=== PATIENT | male | born 1980 | race African-American/Black ===

== ENCOUNTER 2018-01-03 05:14 | Emergency (ER) | payer MEDICAID ==
[~2018-01-03] VITALS: Ht 182.9 cm; Wt 152.0 kg
[~2018-01-03 05:14] MED LIST: ALLO300T2 PO; AMLO10TA4 PO; ATOR40TA70 PO; CHOL20004 PO; GABA-531 PO; GLIP10TA10 PO; LANTUSUD SUBCUT; METF-416 PO; RIVA20TA PO; TRIA1TAB94 PO
[2018-01-03] MEDS ORDERED: KETOROLAC 60MG/2ML VIAL IM ONE (05:45)
[2018-01-03 06:26] VITALS: BP 136/94
== END 2018-01-03 06:47 | disposition home or self-care (01) ==
LOC: ER 05:14
DX: S43.401A Unspecified sprain of right shoulder joint, initial encounter (principal); W19.XXXA Unspecified fall, initial encounter; Y93.89 Activity, other specified; Y92.89 Other specified places as the place of occurrence of the external cause; Y99.8 Other external cause status
CPT/HCPCS: 73030; 96372; 99284; J1885

== ENCOUNTER 2018-09-27 09:56 | Emergency (ER) | payer BC, MEDICAID ==
[~2018-09-27] VITALS: Ht 182.9 cm; Wt 157.0 kg
[2018-09-27] MEDS ORDERED: BACITRACIN ZINC OINT UDPKT TOP ONE (12:30)
[2018-09-27] MEDS ORDERED: LIDOCAINE HCL/PF 1% 10 MG/ML 5ML VIAL IJ ONE (12:30)
[2018-09-27] MEDS ORDERED: HYDROCODONE/ACETAMINOPHEN 5/325MG TABLET PO ONE (13:45)
[2018-09-27 14:27] VITALS: BP 144/97
== END 2018-09-27 14:30 | disposition home or self-care (01) ==
LOC: ER 09:56
DX: L03.011 Cellulitis of right finger (principal); E11.9 Type 2 diabetes mellitus without complications; I10 Essential (primary) hypertension; M10.9 Gout, unspecified; Z86.711 Personal history of pulmonary embolism; Z79.899 Other long term (current) drug therapy
CPT/HCPCS: 10060; 99283; J3490

== ENCOUNTER 2020-06-03 16:29 | Inpatient (IN) | payer OTHER, MEDICAID ==
[~2020-06-03] VITALS: Ht 182.9 cm; Wt 158.3 kg
[~2020-06-03 16:29] MED LIST changes: -GABA-531 PO; +GABA-532 PO
[2020-06-03] MEDS ORDERED: ACETAMINOPHEN 325MG TABLET PO STA (17:02)
[2020-06-03] MEDS ORDERED: DEXAMETHASONE 4MG/ML 1ML VIAL IV ONE (17:15)
[2020-06-03] MEDS ORDERED: VANCOMYCIN 1 G PREMIX 200 ML IV ONE (17:15)
[2020-06-03] MEDS ORDERED: PIPERACILLIN/TAZ 3.375G PREMIX 50 ML IV ONE (17:15)
[2020-06-03 17:19] LABS: CLARITY URINE CLEAR (CLEAR); COLOR URINE YELLOW (YELLOW); KETONES URINE NEGATIVE (NEGATIVE); LEUKOCYTE ESTERASE URINE NEGATIVE (NEGATIVE); NITRITE URINE NEGATIVE (NEGATIVE); OCCULT BLOOD URINE NEGATIVE (NEGATIVE); PH URINE 5.5 (4.5-8.0); PROTEIN URINE NEGATIVE (NEGATIVE); SPECIFIC GRAVITY URINE 1.015 (1.005-1.030); UROBILINOGEN URINE 0.2 E.U./dL (0.2-1.0)
[2020-06-03] MEDS ORDERED: PIPERACILLIN/TAZOBACTAM 3.375 G in DEXT 5% WATER 100 ML IV SCH (17:30)
[2020-06-03 17:42] LABS: BASOPHILS % 0.6 % (0.0-2.0); EOSINOPHILS % 1.2 % (0.0-5.0); HEMATOCRIT. 45.2 % (42.0-52.0); HEMOGLOBIN. 14.8 g/dL (14.0-18.0); LYMPHOCYTES % 27.6 % (20.0-50.0); MEAN CORPUSCULAR HEMOGLOBIN 27.8 pg (28.0-32.0); MEAN CORPUSCULAR VOLUME 84.6 fL (80.0-94.0); MEAN PLATELET VOLUME 9.7 fl (7.4-10.4); MONOCYTES % 8.3 % (2.0-8.0); NEUTROPHILS % 62.3 % (40.0-76.0); PLATELET 191 x1000/uL (130-400); RED BLOOD CELL COUNT 5.34 mill/uL (4.7-6.1); RED CELL DISTRIBUTION WIDTH 13.9 % (11.6-14.6)
[2020-06-03 17:48] LABS: CHLORIDE 109 mEq/L (98-107)
[2020-06-03 17:51] LABS: PROTHROMBIN TIME 10.5 sec (9.6-11.0)
[2020-06-03] MEDS ORDERED: ALBUTEROL (0.083%) 2.5MG/3ML NEB HHN STA (18:16)
[2020-06-03] MEDS ORDERED: IPRATROPIUM BROMIDE (0.02%) 0.5MG/2.5ML NEB HHN STA (18:16)
[2020-06-03] MEDS ORDERED: ENOXAPARIN 150MG/ML SYR SUBCUT NR (18:45)
[2020-06-04 10:00] VITALS: BP 133/92
[2020-06-04 10:07] VITALS: BP 154/92
[2020-06-04] MEDS ORDERED: INSNOV SUBCUT (10:57)
[2020-06-04] MEDS ORDERED: AMLO-79 MT (10:57)
[2020-06-04] MEDS ORDERED: LORAZEPAM 0.5MG TABLET PO PRN (11:00)
[2020-06-04] MEDS ORDERED: DOCUSATE SODIUM 100MG CAPSULE PO PRN (11:00)
[2020-06-04] MEDS ORDERED: MAGNESIUM/ALUMINUM HYDROXIDE/SIMETHICONE 30ML UDC PO PRN (11:00)
[2020-06-04] MEDS ORDERED: ACETAMINOPHEN 650MG SUPP PR PRN (11:00)
[2020-06-04] MEDS ORDERED: ONDANSETRON HCL 4MG/2ML INJ IV PRN (11:00)
[2020-06-04] MEDS ORDERED: CEFTRIAXONE 1 G PREMIX 50 ML IV SCH (11:00)
[2020-06-04] MEDS ORDERED: DIPHENHYDRAMINE 50MG/ML VIAL IV PRN (11:00)
[2020-06-04] MEDS ORDERED: DEXTROSE 50% WATER 50ML SYRINGE IV PRN (11:00)
[2020-06-04] MEDS ORDERED: NA PHOS,M-B/NA PHOS,DI-BA ENEMA 118ML PR PRN (11:00)
[2020-06-04] MEDS ORDERED: HYDROCODONE/ACETAMINOPHEN 5/325MG TABLET PO PRN (11:00)
[2020-06-04] MEDS ORDERED: CLONIDINE 0.1MG TABLET PO PRN (11:00)
[2020-06-04] MEDS ORDERED: ENOXAPARIN 40MG/0.4ML SYR SUBCUT SCH (11:27)
[2020-06-04] MEDS: BLOOD SUGAR DIAGNOSTIC STRIP TEST SCH ×3 (12:18→21:03)
[2020-06-04] MEDS: DEXAMETHASONE 10 MG/ML VIAL IV SCH (12:44)
[2020-06-04] MEDS: CEFTRIAXONE 1,000 MG in DEXTROSE 5% WATER 50 ML IV SCH (12:46)
[2020-06-04] MEDS: INSULIN LISPRO 100 UNITS/ML SUBCUT SCH ×3 (12:46→21:02)
[2020-06-04] MEDS: AZITHROMYCIN 500 MG in DEXT 5% WATER 250 ML IV SCH (12:47)
[2020-06-04] MEDS: GUAIFENESIN 200MG/10ML SUGAR FREE UDC PO PRN ×2 (13:20→17:10)
[2020-06-04] MEDS: ALBUTEROL 6.7GM HFA INHALER ORI SCH ×2 (15:28→21:23)
[2020-06-04 16:00] VITALS: BP 146/99
[2020-06-04 16:46] LABS: BG BASE EXCESS -0.6 mmol/L (-2.0-2.0); BG CARBOXYHEMOGLOBIN 0.6 % (0.5-1.5); BG DEOXYHEMOGLOBIN 5.8 % (0.0-5.0); BG HCO3 ACT 23.2 mmol/L (22.0-26.0); BG METHEMOGLOBIN 0.1 % (0.0-1.5); BG OXYGEN SATURATION 94.2 % (92.0-98.5); BG OXYHEMOGLOBIN 93.5 % (94.0-97.0); BG PH 7.427 (7.350-7.450); BG PO2 68.5 mmHg (75.0-100.0); BG SAMPLE SITE RIGHT RADIAL; BG TOTAL HEMOGLOBIN 15.6 g/dL (12.0-18.0); BG VENT MODE NASAL CANNULA
[2020-06-04] MEDS: FUROSEMIDE 40MG/4ML VIAL IVP SCH (17:10)
[2020-06-04 18:47] LABS: CREATINE KINASE MB FRACTION 3.2 ng/mL (0.5-3.6)
[2020-06-04 18:59] LABS: *AMPHETAMINES SCREEN URINE NEGATIVE (NEGATIVE); *BARBITURATES SCREEN URINE NEGATIVE (NEGATIVE); *BENZODIAZEPINES SCREEN URINE NEGATIVE (NEGATIVE); *COCAINE SCREEN URINE NEGATIVE (NEGATIVE)
[2020-06-04 19:00] LABS: CANNABINOID URINE SCREEN NEGATIVE (NEGATIVE); METHADONE URINE SCREEN NEGATIVE (NEGATIVE); OPIATES URINE SCREEN NEGATIVE (NEGATIVE); PHENCYCLIDINE URINE SCREEN NEGATIVE (NEGATIVE)
[2020-06-04 20:00] VITALS: BP 156/101
[2020-06-04] MEDS: ATORVASTATIN CALCIUM 40MG TABLET PO SCH (21:02)
[2020-06-04] MEDS: GLIPIZIDE 10MG TABLET PO SCH (21:02)
[2020-06-04] MEDS: CARVEDILOL 3.125 MG TABLET PO SCH (21:02)
[2020-06-04] MEDS: FAMOTIDINE 20MG TABLET PO SCH (21:02)
[2020-06-04] MEDS: GABAPENTIN 300MG CAPSULE PO SCH (21:05)
[2020-06-05 00:30] VITALS: BP 137/104
[2020-06-05 00:48] LABS: CREATINE KINASE MB FRACTION 2.9 ng/mL (0.5-3.6)
[2020-06-05] MEDS: ALBUTEROL 6.7GM HFA INHALER ORI SCH ×2 (01:00→08:06)
[2020-06-05 04:00] VITALS: BP 123/79
[2020-06-05 06:01] LABS: BASOPHILS % 0.1 % (0.0-2.0); HEMATOCRIT. 43.5 % (42.0-52.0); HEMOGLOBIN. 14.2 g/dL (14.0-18.0); LYMPHOCYTES % 12.7 % (20.0-50.0); MEAN CORPUSCULAR HEMOGLOBIN 27.7 pg (28.0-32.0); MEAN CORPUSCULAR VOLUME 84.8 fL (80.0-94.0); MEAN PLATELET VOLUME 10.3 fl (7.4-10.4); MONOCYTES % 6.5 % (2.0-8.0); NEUTROPHILS % 80.7 % (40.0-76.0); PLATELET 203 x1000/uL (130-400); RED BLOOD CELL COUNT 5.13 mill/uL (4.7-6.1)
[2020-06-05] MEDS: BLOOD SUGAR DIAGNOSTIC STRIP TEST SCH ×4 (06:13→21:00)
[2020-06-05 06:24] LABS: CHLORIDE 106 mEq/L (98-107)
[2020-06-05] MEDS: RIVAROXABAN 20 MG TABLET PO SCH (06:24)
[2020-06-05] MEDS: INSULIN LISPRO 100 UNITS/ML SUBCUT SCH ×5 (06:25→21:36)
[2020-06-05 06:43] LABS: HDL CHOLESTEROL 53 mg/dL (40-59)
[2020-06-05 06:46] LABS: T4 FREE 1.02 ng/dL (0.76-1.46)
[2020-06-05 06:49] LABS: LDL CHOLESTEROL 111 mg/dL (5-100)
[2020-06-05 08:00] VITALS: BP 141/90
[2020-06-05] MEDS: CARVEDILOL 3.125 MG TABLET PO SCH (08:32)
[2020-06-05] MEDS: DEXAMETHASONE 10 MG/ML VIAL IV SCH (08:32)
[2020-06-05] MEDS: ALLOPURINOL 300 MG TABLET PO SCH (08:32)
[2020-06-05] MEDS: FUROSEMIDE 40MG/4ML VIAL IVP SCH ×2 (08:32→17:13)
[2020-06-05] MEDS: ACETAMINOPHEN 325MG TABLET PO PRN ×2 (09:37→18:25)
[2020-06-05] MEDS ORDERED: INSULIN GLARGINE UD 100 UNITS/ML SYR SUBCUT SCH (10:00)
[2020-06-05 11:38] LABS: BG BASE EXCESS 1.9 mmol/L (-2.0-2.0); BG CARBOXYHEMOGLOBIN 0.5 % (0.5-1.5); BG DEOXYHEMOGLOBIN 10.9 % (0.0-5.0); BG FRACTION INSPIRED OXYGEN 21; BG HCO3 ACT 26.1 mmol/L (22.0-26.0); BG METHEMOGLOBIN 0.3 % (0.0-1.5); BG OXYHEMOGLOBIN 88.3 % (94.0-97.0); BG PCO2 39.3 mmHg (35.0-45.0); BG PO2 54.7 mmHg (75.0-100.0); BG SAMPLE SITE RIGHT RADIAL; BG TOTAL HEMOGLOBIN 14.6 g/dL (12.0-18.0); BG VENT MODE ROOM AIR
[2020-06-05] MEDS ORDERED: ALBUTEROL (0.083%) 2.5MG/3ML NEB HHN PRN (11:45)
[2020-06-05 12:00] VITALS: BP 115/73
[2020-06-05] MEDS ORDERED: CARVEDILOL 3.125 MG TABLET PO NR (12:00)
[2020-06-05] MEDS: CEFTRIAXONE 1,000 MG in DEXTROSE 5% WATER 50 ML IV SCH (15:03)
[2020-06-05 16:00] VITALS: BP 126/86
[2020-06-05] MEDS: AZITHROMYCIN 500 MG in DEXT 5% WATER 250 ML IV SCH (17:13)
[2020-06-05 20:00] VITALS: BP 134/97
[2020-06-05] MEDS: ATORVASTATIN CALCIUM 40MG TABLET PO SCH ×2 (21:00→21:34)
[2020-06-05] MEDS: GLIPIZIDE 10MG TABLET PO SCH ×2 (21:00→21:35)
[2020-06-05] MEDS: FAMOTIDINE 20MG TABLET PO SCH ×2 (21:00→21:35)
[2020-06-05] MEDS: GABAPENTIN 300MG CAPSULE PO SCH ×2 (21:00→21:34)
[2020-06-05] MEDS: CARVEDILOL 6.25 MG TABLET PO SCH (21:36)
[2020-06-06] VITALS: BP 129/85
[2020-06-06 04:00] VITALS: BP 109/67
[2020-06-06 06:08] LABS: BASOPHILS % 0.1 % (0.0-2.0); EOSINOPHILS % 0.1 % (0.0-5.0); HEMATOCRIT. 42.2 % (42.0-52.0); HEMOGLOBIN. 13.9 g/dL (14.0-18.0); LYMPHOCYTES % 21.9 % (20.0-50.0); MEAN CORPUSCULAR HEMOGLOBIN 28.1 pg (28.0-32.0); MEAN CORPUSCULAR VOLUME 85.2 fL (80.0-94.0); MONOCYTES % 8.2 % (2.0-8.0); NEUTROPHILS % 69.7 % (40.0-76.0); PLATELET 211 x1000/uL (130-400); RED BLOOD CELL COUNT 4.96 mill/uL (4.7-6.1); RED CELL DISTRIBUTION WIDTH 13.8 % (11.6-14.6)
[2020-06-06 06:30] LABS: CHLORIDE 106 mEq/L (98-107)
[2020-06-06] MEDS: BLOOD SUGAR DIAGNOSTIC STRIP TEST SCH ×4 (06:45→21:00)
[2020-06-06 08:00] VITALS: BP 112/80
[2020-06-06] MEDS: FUROSEMIDE 40MG/4ML VIAL IVP SCH ×2 (08:59→17:35)
[2020-06-06] MEDS: CARVEDILOL 6.25 MG TABLET PO SCH (09:00)
[2020-06-06] MEDS: ALLOPURINOL 300 MG TABLET PO SCH (09:00)
[2020-06-06] MEDS: RIVAROXABAN 20 MG TABLET PO SCH (09:00)
[2020-06-06] MEDS: INSULIN LISPRO 100 UNITS/ML SUBCUT SCH ×3 (09:09→17:35)
[2020-06-06] MEDS: INSULIN GLARGINE UD 100 UNITS/ML SYR SUBCUT SCH (10:22)
[2020-06-06] MEDS: CEFTRIAXONE 1,000 MG in DEXTROSE 5% WATER 50 ML IV SCH (11:56)
[2020-06-06 12:00] VITALS: BP 119/72
[2020-06-06] MEDS: AZITHROMYCIN 500 MG in DEXT 5% WATER 250 ML IV SCH (13:19)
[2020-06-06 16:00] VITALS: BP 128/95
[2020-06-06] MEDS: LISINOPRIL 10MG TABLET PO SCH (18:03)
[2020-06-06 20:42] VITALS: BP 108/73
[2020-06-07] VITALS: BP 166/56
[2020-06-07] MEDS: CARVEDILOL 6.25 MG TABLET PO SCH ×2 (02:09→08:57)
[2020-06-07 04:00] VITALS: BP 108/64
[2020-06-07] MEDS: INSULIN LISPRO 100 UNITS/ML SUBCUT SCH ×2 (07:15→12:15)
[2020-06-07 07:17] LABS: BASOPHILS % 0.2 % (0.0-2.0); EOSINOPHILS % 1.3 % (0.0-5.0); HEMOGLOBIN. 13.9 g/dL (14.0-18.0); LYMPHOCYTES % 40.2 % (20.0-50.0); MEAN CORPUSCULAR HEMOGLOBIN 27.5 pg (28.0-32.0); MEAN CORPUSCULAR VOLUME 84.7 fL (80.0-94.0); MEAN PLATELET VOLUME 9.8 fl (7.4-10.4); NEUTROPHILS % 49.3 % (40.0-76.0); PLATELET 206 x1000/uL (130-400); RED BLOOD CELL COUNT 5.07 mill/uL (4.7-6.1); RED CELL DISTRIBUTION WIDTH 13.8 % (11.6-14.6)
[2020-06-07 07:43] LABS: CHLORIDE 105 mEq/L (98-107)
[2020-06-07 08:00] VITALS: BP 101/58
[2020-06-07] MEDS: ALLOPURINOL 300 MG TABLET PO SCH (08:52)
[2020-06-07] MEDS: INSULIN GLARGINE UD 100 UNITS/ML SYR SUBCUT SCH (08:59)
[2020-06-07] MEDS: LISINOPRIL 10MG TABLET PO SCH (09:00)
[2020-06-07] MEDS: FUROSEMIDE 40MG/4ML VIAL IVP SCH (09:00)
[2020-06-07] MEDS: BLOOD SUGAR DIAGNOSTIC STRIP TEST SCH (11:45)
[2020-06-07 12:00] VITALS: BP 124/62
[2020-06-07] MEDS ORDERED: REGADENOSON 0.4 MG/5 ML IV ONE (12:29)
[2020-06-07] MEDS: CEFTRIAXONE 1,000 MG in DEXTROSE 5% WATER 50 ML IV SCH ×2 (12:30→14:58)
[2020-06-07] MEDS: AZITHROMYCIN 500 MG in DEXT 5% WATER 250 ML IV SCH (13:00)
[2020-06-07 14:39] LABS: BG BASE EXCESS 0.3 mmol/L (-2.0-2.0); BG CARBOXYHEMOGLOBIN 0.4 % (0.5-1.5); BG DEOXYHEMOGLOBIN 4.5 % (0.0-5.0); BG FRACTION INSPIRED OXYGEN 21; BG HCO3 ACT 24.4 mmol/L (22.0-26.0); BG METHEMOGLOBIN 0.1 % (0.0-1.5); BG OXYGEN SATURATION 95.5 % (92.0-98.5); BG PH 7.426 (7.350-7.450); BG PO2 79.5 mmHg (75.0-100.0); BG SAMPLE SITE LEFT RADIAL; BG VENT MODE ROOM AIR
[2020-06-07 14:51] VITALS: BP 124/62
[2020-06-07 17:27] VITALS: BP 124/62
== END 2020-06-07 16:55 | disposition home or self-care (01) | DRG 871 ==
LOC: ER 16:29 → 7WST 18:39 → EDBEDREQ 18:47 → ENRESERV 06-04 08:27 → CANRESERV 06-04 08:31 → ENRESERV 06-04 08:31 → 5WST 06-05 00:38
PROVIDERS: ADMIT Internal Medicine; ATTEND Internal Medicine
DX: A41.9 Sepsis, unspecified organism (principal); J18.9 Pneumonia, unspecified organism; I50.23 Acute on chronic systolic (congestive) heart failure; E66.2 Morbid (severe) obesity with alveolar hypoventilation; Z68.42 Body mass index [BMI] 45.0-49.9, adult; I42.9 Cardiomyopathy, unspecified; R06.03 Acute respiratory distress; I11.0 Hypertensive heart disease with heart failure; M10.9 Gout, unspecified; E78.5 Hyperlipidemia, unspecified; R79.82 Elevated C-reactive protein (CRP); E11.9 Type 2 diabetes mellitus without complications; Z20.822 Contact with and (suspected) exposure to COVID-19; Z79.01 Long term (current) use of anticoagulants; Z86.711 Personal history of pulmonary embolism; Z86.73 Personal history of transient ischemic attack (TIA), and cerebral infarction without residual deficits; R00.0 Tachycardia, unspecified
CPT/HCPCS: 36415; 36600; 71045; 78452; 78580; 80048; 80053; 80061; 80305; 81003; 82375; 82550; 82553; 82728; 82805; 82962; 83036; 83605; 83880; 84145; 84439; 84443; 84484; 84550; 85025; 85379; 86140; 93005; 93017; 93306; 93970; 94640; 97162; 99291; A9500; J0456; J0696; J1100; J1650; J1815; J1940; J2543; J2785; J3370; J7060; U0003

== ENCOUNTER 2021-02-19 13:53 | Emergency (ER) | payer OTHER, MEDICAID ==
[~2021-02-19] VITALS: Ht 175.3 cm; Wt 114.0 kg
[~2021-02-19 13:53] MED LIST changes: +AMLO-79 MT; -AMLO10TA4 PO; +INSNOV SUBCUT; -METF-416 PO; -TRIA1TAB94 PO
[2021-02-19] MEDS ORDERED: SODIUM CHLORIDE 0.9% 1,000 ML IV ONE (17:15)
[2021-02-19 17:18] LABS: BASOPHILS % 0.2 % (0.0-2.0); EOSINOPHILS % 2.6 % (0.0-5.0); HEMATOCRIT. 45.6 % (42.0-52.0); HEMOGLOBIN. 14.7 g/dL (14.0-18.0); LYMPHOCYTES % 37.3 % (20.0-50.0); MEAN CORPUSCULAR HEMOGLOBIN 27.5 pg (28.0-32.0); MEAN CORPUSCULAR VOLUME 85.3 fL (80.0-94.0); MEAN PLATELET VOLUME 11.6 fl (7.4-10.4); MONOCYTES % 8.6 % (2.0-8.0); NEUTROPHILS % 51.3 % (40.0-76.0); PLATELET 157 x1000/uL (130-400); RED BLOOD CELL COUNT 5.34 mill/uL (4.7-6.1)
[2021-02-19 17:19] LABS: CHLORIDE 100 mEq/L (98-107)
[2021-02-19] MEDS ORDERED: INSULIN REGULAR (HUMULIN R) 300UNITS/3ML VIAL IV ONE (17:45)
[2021-02-19 19:09] VITALS: BP 153/97
== END 2021-02-19 19:16 | disposition home or self-care (01) ==
LOC: ER 13:53
DX: E11.65 Type 2 diabetes mellitus with hyperglycemia (principal); Z79.4 Long term (current) use of insulin
CPT/HCPCS: 36415; 71045; 80053; 82962; 83880; 84484; 85025; 93005; 96374; 99285; J1815; J7030

== ENCOUNTER 2021-08-10 18:10 | Emergency (ER) | payer OTHER, MEDICAID ==
[~2021-08-10] VITALS: Ht 182.9 cm; Wt 156.0 kg
[2021-08-10] MEDS ORDERED: SODIUM CHLORIDE 0.9% 1,000 ML IV ONE ×2 (19:00→19:30)
[2021-08-10 19:22] LABS: BASOPHILS % 0.2 % (0.0-2.0); EOSINOPHILS % 1.9 % (0.0-5.0); HEMATOCRIT. 41.3 % (42.0-52.0); HEMOGLOBIN. 13.8 g/dL (14.0-18.0); LYMPHOCYTES % 36.3 % (20.0-50.0); MEAN CORPUSCULAR HEMOGLOBIN 28.6 pg (28.0-32.0); MEAN CORPUSCULAR VOLUME 85.8 fL (80.0-94.0); MEAN PLATELET VOLUME 10.1 fl (7.4-10.4); MONOCYTES % 7.9 % (2.0-8.0); NEUTROPHILS % 53.7 % (40.0-76.0); PLATELET 140 x1000/uL (130-400); RED BLOOD CELL COUNT 4.82 mill/uL (4.7-6.1); RED CELL DISTRIBUTION WIDTH 13.3 % (11.6-14.6)
[2021-08-10 19:29] LABS: CHLORIDE 101 mEq/L (98-107)
[2021-08-10] MEDS ORDERED: PREDNISONE 20MG TABLET PO ONE (19:30)
[2021-08-10] MEDS ORDERED: ACYCLOVIR 400 MG TABLET PO ONE (19:30)
[2021-08-10 19:39] LABS: ETHANOL BLOOD < 10 mg/dL
[2021-08-10] MEDS ORDERED: INSULIN REGULAR (HUMULIN R) 300UNITS/3ML VIAL SUBCUT ONE (20:15)
[2021-08-10] MEDS ORDERED: AZITHROMYCIN 500MG/250ML 250 ML IV ONE (20:15)
[2021-08-10] MEDS ORDERED: CEFTRIAXONE 1 G PREMIX 50 ML IV ONE (20:15)
[2021-08-10] MEDS ORDERED: SODIUM CHLORIDE 0.9% 1000ML BAG (SEPSIS BOLUS) IV ONE (20:15)
[2021-08-10] MEDS ORDERED: PREDNISONE 20MG TABLET PO SCH (21:30)
[2021-08-10] MEDS ORDERED: INSULIN REGULAR (HUMULIN R) 300UNITS/3ML VIAL SUBCUT SCH (21:30)
[2021-08-10] MEDS ORDERED: PREDNISONE 20MG TABLET PO NR (21:50)
[2021-08-10] MEDS ORDERED: ASPIRIN 325MG EC TABLET PO ONE (22:30)
[2021-08-10 23:21] LABS: CLARITY URINE CLEAR (CLEAR); COLOR URINE YELLOW (YELLOW); KETONES URINE TRACE (NEGATIVE); LEUKOCYTE ESTERASE URINE NEGATIVE (NEGATIVE); NITRITE URINE NEGATIVE (NEGATIVE); OCCULT BLOOD URINE NEGATIVE (NEGATIVE); PROTEIN URINE NEGATIVE (NEGATIVE); SPECIFIC GRAVITY URINE 1.026 (1.005-1.030); UROBILINOGEN URINE 0.2 E.U./dL (0.2-1.0)
[2021-08-11 08:45] VITALS: BP 167/100
== END 2021-08-11 09:11 | disposition left against medical advice (07) ==
LOC: ER 18:10 → CANBEDREQ 08-11 09:31
DX: E11.65 Type 2 diabetes mellitus with hyperglycemia (principal); A41.9 Sepsis, unspecified organism; R29.810 Facial weakness; E87.2 Acidosis; Z20.822 Contact with and (suspected) exposure to COVID-19; I11.0 Hypertensive heart disease with heart failure; I25.10 Atherosclerotic heart disease of native coronary artery without angina pectoris; I50.9 Heart failure, unspecified; Z86.73 Personal history of transient ischemic attack (TIA), and cerebral infarction without residual deficits; Z79.4 Long term (current) use of insulin
CPT/HCPCS: 36415; 70450; 71045; 80053; 80320; 81003; 82010; 82962; 83605; 83690; 83880; 84484; 85025; 87040; 87086; 87426; 93005; 96361; 96365; 96367; 96372; 99291; C9803; J0456; J0696; J1815; J7030; J7512; G0480

== ENCOUNTER 2023-05-25 15:31 | Emergency (ER) | payer MEDICARE, MEDICAID ==
[~2023-05-25] VITALS: Ht 182.9 cm; Wt 150.0 kg
[~2023-05-25 15:31] MED LIST changes: +AMLO-138 MT; -AMLO-79 MT
[2023-05-25 15:33] VITALS: O2SAT 97
[2023-05-25] MEDS ORDERED: ASPIRIN 325MG EC TABLET PO ONE (16:00)
[2023-05-25 16:20] LABS: BASOPHILS % 0.4 % (0.0-2.0); HEMATOCRIT. 42.6 % (42.0-52.0); HEMOGLOBIN. 14.1 g/dL (14.0-18.0); LYMPHOCYTES % 38.7 % (20.0-50.0); MEAN CORPUSCULAR HEMOGLOBIN 28.9 pg (28.0-32.0); MEAN CORPUSCULAR HGB CONC 33.1 g/dL (31.0-37.0); MEAN CORPUSCULAR VOLUME 87.1 fL (80.0-94.0); MONOCYTES % 7.6 % (2.0-8.0); NEUTROPHILS % 51.3 % (40.0-76.0); PLATELET 172 x1000/uL (130-400); RED BLOOD CELL COUNT 4.89 mill/uL (4.7-6.1); RED CELL DISTRIBUTION WIDTH 13.9 % (11.6-14.6); WHITE BLOOD COUNT 8.5 x1000/uL (4.5-11.0)
[2023-05-25 16:34] LABS: ALANINE AMINOTRANSFERASE 30 IU/L (10-49); ALBUMIN 4.1 g/dL (3.2-4.8); ASPARTATE AMINOTRANSFERASE 27 IU/L (<34); BILIRUBIN TOTAL 0.4 mg/dL (0.1-1.0); CARBON DIOXIDE 29 mEq/L (21-32); CHLORIDE 103 mEq/L (98-107); CREATININE 1.4 mg/dL (0.6-1.3); POTASSIUM 4.1 mEq/L (3.5-5.1); PROTEIN TOTAL 6.5 g/dL (6.0-8.3); SODIUM 137 mEq/L (136-145); TROPONIN I HIGH SENSITIVITY 12 ng/L (3.0-53); UREA NITROGEN BLOOD 14 mg/dL (9-23)
[2023-05-25 16:52] LABS: GLUCOSE 270 mg/dL (70-105)
[2023-05-25] MEDS: ASPIRIN 325MG EC TABLET PO NR (17:03)
[2023-05-25 18:01] VITALS: TEMP 97.7
[2023-05-25 18:15] LABS: TROPONIN I HIGH SENSITIVITY 11 ng/L (3.0-53)
[2023-05-25 19:52] VITALS: BP 141/90; PULSE 99; RESP 17
== END 2023-05-25 20:07 | disposition home or self-care (01) ==
LOC: ER 16:10
DX: R07.89 Other chest pain (principal); I10 Essential (primary) hypertension; E78.00 Pure hypercholesterolemia, unspecified; E11.9 Type 2 diabetes mellitus without complications; Z79.899 Other long term (current) drug therapy; Z79.82 Long term (current) use of aspirin; Z86.73 Personal history of transient ischemic attack (TIA), and cerebral infarction without residual deficits
CPT/HCPCS: 36415; 71045; 80053; 83880; 84484; 85025; 93005; 99285